=== PATIENT | female | born 1945 | race Caucasian/White ===

== ENCOUNTER 2020-12-31 20:51 | Emergency (ER) | payer MEDICARE, OTHER ==
--- NOTE | 2020-12-31 21:21 | EDM.PDOC ---
ED HPI GENERAL MEDICAL PROBLEM - General Chief Complaint: Cardiovascular Problem Stated Complaint: HIGH BP/LIGHTHEADED Time Seen by Provider: 12/31/20 21:10 Source of Information: Reports: Patient, RN Notes Reviewed History Limitations: Reports: No Limitations - History of Present Illness INITIAL COMMENTS - FREE TEXT/NARRATIVE: Patient is a 75-year-old female who presents to the ED for evaluation of her elevated blood pressure readings. Patient notes that for the past few weeks, she has been feeling "jittery and lightheaded". She has been taking her blood pressure at home from time to time, and went to the [place] pharmacy [facility] to have her blood pressure checked and she notes that it was 193/88, this concerned her. She takes 10 mg lisinopril daily, but did take an extra dose of lisinopril today at 8 PM. She is complaining of a dull headache, but no blurred vision or double vision, she has had no other sick-like symptoms, fever/chills, cough/shortness of breath, she is have not having any chest pain or discomfort. Primary care provider is Dr. Lopez. Headache Pain Score (Numeric/FACES): 4 - Related Data Allergies Allergy/AdvReac Type Severity Reaction Status Date / Time nitrofurantoin Allergy Other Verified 12/31/20 21:03 Home Meds: Home Meds Lisinopril 10 mg PO DAILY 07/03/15 [History] Aspirin 81 mg PO DAILY 12/31/20 [History] Calcium Carbonate/Vitamin D3 [Calcium 600-Vit D3 400 Tablet] 1 each PO DAILY 12/31/20 [History] Multivitamin 1 each PO DAILY 12/31/20 [History] Matthews-3/DHA/Epa/Fish Oil [Matthews-3 Fish Oil 1,000 MG Sfgl] 1,000 mg PO DAILY 12/31/20 [History] Vitamin B Complex [B Complex] 1 each PO DAILY 12/31/20 [History] Zinc Gluconate [Zinc] 50 mg PO DAILY 12/31/20 [History] atorvaSTATin [Lipitor] 10 mg PO BEDTIME 12/31/20 [History] cycloSPORINE [Restasis Multidose] 5.5 ml OP ASDIRECTED 12/31/20 [History] Past Medical History HEENT History: Reports: Impaired Vision Other HEENT History: wears glasses Cardiovascular History: Reports: High Cholesterol, Hypertension Other Gastrointestinal History: C-DIFF POSITIVE DX ON 06/26/2015 - Infectious Disease History Infectious Disease History: Reports: C-Difficile - Past Surgical History Female Surgical History: Reports: Tubal Ligation Social & Family History - Tobacco Use Tobacco Use Status *Q: Never Tobacco User - Recreational Drug Use Recreational Drug Use: No ED ROS GENERAL - Review of Systems Review Of Systems: Comprehensive ROS is negative, except as noted in HPI. ED EXAM, GENERAL - Physical Exam Exam: See Below Exam Limited By: No Limitations General Appearance: Alert, WD/WN, No Apparent Distress Respiratory/Chest: No Respiratory Distress, Lungs Clear, Normal Breath Sounds, No Accessory Muscle Use, Chest Non-Tender Cardiovascular: Normal Peripheral Pulses, Regular Rate, Rhythm, No Edema, No Murmur Peripheral Pulses: 2+: Radial (L), Radial (R) Extremities: Normal Inspection, Normal Capillary Refill Neurological: Alert, Oriented, Normal Cognition, No Motor/Sensory Deficits Psychiatric: Normal Affect, Normal Mood Skin Exam: Warm, Dry, Intact, Normal Color, No Rash Course - Vital Signs Last Recorded V/S: Last Vital Signs Temp 97.0 F 12/31/20 21:01 Pulse 76 12/31/20 21:01 Resp 15 12/31/20 21:01 BP 192/83 H 12/31/20 21:01 Pulse Ox 100 12/31/20 21:01 - Re-Assessments/Exams Free Text/Narrative Re-Assessment/Exam: 12/31/20 21:21 Patient presents to the ED for her elevated blood pressure readings, at the time of triage, blood pressure was 192/83, and has subsequently come down to 181/69, patient did take that second dose of lisinopril prior to coming to the ER, I am hesitant on trying to give her more medications here, she does have a dull headache, but states it is not life altering. For tonight's purposes we will monitor her blood pressure 1 or 2 more cycles, and hopefully get her home with general recommendations to have her take her BP a few times/day and follow-up with Dr. Lopez for management. 12/31/20 21:31 Repeat blood pressure does show a systolic of 160/66, we will discharge patient home with the above general recommendations. Departure - Departure Time of Disposition: 21:24 Disposition: Home, Self-Care 01 Condition: Good Clinical Impression: Elevated blood pressure reading with diagnosis of hypertension Instructions: Managing Your Hypertension Referrals: Delaney Ramon MD [Primary Care Provider] - Forms: ED Department Discharge Additional Instructions: You were evaluated in the ER today for your elevated blood pressure reading. As we only have today's blood pressure readings to go off of, we highly recommend that when you are discharged home, you take your blood pressures when you are in a calm normal state for yourself, if you have been sitting for roughly 5 minutes, and then take your blood pressure. Record this number in a journal, do this multiple times throughout the day after you have been sitting for 5 minutes in a calm collected manner. Do not take your blood pressure after you have been up and moving, or doing physical activity, as everyone has normal physiologic fluctuations in their blood pressure, and will likely get an elevated blood pressure reading after this fact. Please keep taking your lisinopril 10 mg daily as prescribed by your doctor. Recommend you call your doctor, tomorrow morning and obtain an appointment, for some time late this week or early next week for ongoing management of your blood pressure. Take your blood pressure reading journal with you, so that she can make adjustments in your blood pressure as appropriate. Highly recommend you return to the ER at any time if you get any blurred vision/double vision, develop any sort of chest pain or discomfort, as this could necessitate more of any medical emergency. Please return to the ER if your symptoms change or worsen. Sepsis Event Note (ED) - Evaluation Sepsis Screening Result: No Definite Risk - Focused Exam Vital Signs: Vital Signs Temp Pulse Resp BP Pulse Ox 12/31/20 21:01 97.0 F 76 15 192/83 H 100
[2020-12-31 21:52] VITALS: BP 157/68; PULSE 81
== END 2020-12-31 21:50 | disposition home or self-care (01) ==
LOC: JD.ED 20:51
DX: I10 Essential (primary) hypertension (principal); E78.00 Pure hypercholesterolemia, unspecified; Z88.1 Allergy status to other antibiotic agents; Z79.82 Long term (current) use of aspirin; Z79.899 Other long term (current) drug therapy
CPT/HCPCS: 99282; 99283

== ENCOUNTER 2025-10-12 10:25 | Emergency (ER) | payer MEDICARE, OTHER ==
[2025-10-12] MEDS ORDERED: Sodium Chloride 0.9% 10 ML Syringe FLUSH PRN (11:15)
[2025-10-12 11:30] LABS: BASOPHILS ABSOLUTE AUTO 0.1 K/mm3 (0.0-0.2); BASOPHILS PERCENT AUTO 0.7 % (0.0-1.0); EOSINOPHILS ABSOLUTE AUTO 0.1 K/mm3 (0.0-0.4); EOSINOPHILS PERCENT AUTO 1.3 % (0.0-6.0); IMMATURE GRAN ABSOLUTE AUTO 0.02 K/mm3 (0.00-0.05); IMMATURE GRAN PERCENT AUTO 0.3 % (0.0-0.4); LYMPHOCYTES ABSOLUTE AUTO 1.6 K/mm3 (1.0-4.8); LYMPHOCYTES PERCENT AUTO 23.1 % (24.0-44.0); MEAN PLATELET VOLUME 10.1 fl (9.4-12.3); MONOCYTES ABSOLUTE AUTO 0.7 K/mm3 (0.0-0.8); MONOCYTES PERCENT AUTO 10.9 % (0.0-8.0); NEUTROPHILS ABSOLUTE AUTO 4.3 K/mm3 (1.8-7.7); NEUTROPHILS PERCENT AUTO 63.7 % (41.0-71.0); NRBC ABSOLUTE 0.00 (0.00-0.02); NRBC PERCENT 0.0 % (0.0-0.2); PLATELET COUNT,PLT 280 K/mm3 (150-400); RED BLOOD CELL COUNT 3.50 M/mm3 (4.10-5.30); WHITE BLOOD CELL COUNT,WBC 6.79 K/mm3 (3.9-11.3)
[2025-10-12 11:47] LABS: APPEARANCE,URINE SLT CLOUDY (Clear); GLUCOSE,URINE NEGATIVE (Negative); OCCULT BLOOD,URINE NEGATIVE (Negative)
[2025-10-12 11:57] LABS: LACTIC ACID 0.8 mmol/L (0.4-2.0)
[2025-10-12 12:03] LABS: A/G RATIO 1.0 (1-2); ALANINE AMINOTRANSFERASE,ALT 20.0 U/L (14-59); ASPARTATE AMNIOTRANSFERASE,AST 22.0 U/L (15-37); BILIRUBIN TOTAL 0.5 mg/dL (0.2-1.0); BLOOD UREA NITROGEN,BUN 19.0 mg/dL (7-18); CARBON DIOXIDE,CO2 28.0 mEq/L (21-32); CHLORIDE,CL 105.0 mEq/L (98-107); CREATININE 1.1 mg/dL (0.55-1.02); EST CRCL DRUG DOSING (CG) 29.79 mL/min; ESTIMATED GFR 51.0 mL/min (>60); GLUCOSE RANDOM 87.0 mg/dL (70-99); POTASSIUM,K 3.7 mEq/L (3.5-5.1); PROTEIN TOTAL,TP 6.6 g/dl (6.4-8.2); SODIUM,NA 143.0 mEq/L (136-145)
[2025-10-12 14:22] VITALS: BP 157/68; PULSE 91
== END 2025-10-12 14:20 | disposition home or self-care (01) ==
LOC: JD.ED 10:25
DX: R19.7 Diarrhea, unspecified (principal); I10 Essential (primary) hypertension; E78.00 Pure hypercholesterolemia, unspecified; Z79.899 Other long term (current) drug therapy; Z88.8 Allergy status to other drugs, medicaments and biological substances
CPT/HCPCS: 36415; 80053; 81003; 83605; 83690; 83735; 85025; 86140; 87507; 96360; 99284; J7030